=== PATIENT | male | born 1995 | race Caucasian/White ===

== ENCOUNTER 2017-07-05 23:37 | Observation (INO) | payer OTHER ==
[~2017-07-05] VITALS: Ht 188 cm; Wt 141.9 kg
[2017-07-06] VITALS (8 sets, daily range): BP systolic 106–150; BP diastolic 53–83
[2017-07-06 00:07] LABS: HEMATOCRIT 45.6 % (38.0-50.0); MCH 28.1 PG (29.0-34.0); MCHC 33.1 G/DL (30.0-36.0); MCV 84.8 FL (86-99); MEAN PLAT.VOLUME 10.1 uM^3 (9.0-12.4); PLATELET COUNT 232 K/uL (156-360); RBC DIS.WIDTH-CV 12.6 % (11.8-14.6); RBC DIS.WIDTH-SD 38.5 % (39-53); RED BLOOD COUNT 5.38 M/uL (4.00-5.50); WHITE BLOOD COUNT 14.6 K/uL (4.1-10.2)
[2017-07-06 00:20] LABS: CHLORIDE 103 mEq/L (99-109); POTASSIUM 4.4 mEq/L (3.7-5.4); SODIUM 139 mEq/L (136-147)
[2017-07-06 00:21] LABS: GLUCOSE 99 mg/dL (70-99)
[2017-07-06 00:23] LABS: ANION GAP 10 MEQ/L (2-14)
[2017-07-06 00:25] LABS: GFR ESTIMATE (CALCULATED) > 59 mL/min/
[2017-07-06 00:26] LABS: UREA NITROGEN (BUN) 13 mg/dL (9-23)
[2017-07-06 01:34] LABS: INFLUENZA A VIRAL ANTIGEN NEGATIVE; INFLUENZA B VIRAL ANTIGEN NEGATIVE
[2017-07-06 01:44] LABS: TOTAL BILIRUBIN 0.4 mg/dL (0.0-1.0)
[2017-07-06 01:45] LABS: ALKALINE PHOSPHATASE 64 IU/L (3-129)
[2017-07-06 01:48] LABS: DIRECT BILIRUBIN 0.2 mg/dL (0.0-0.3)
[2017-07-06 02:20] LABS: INTERNAL CONTROL VALID? YES; MONOSPOT (MONONUCLEOSIS SEROL) NEGATIVE
[2017-07-06 02:49] LABS: ADD MIUA? NO; BILIRUBIN NEGATIVE; BLOOD NEGATIVE; COLOR YELLOW ((YELLOW)); GLUCOSE (STRIP) NEGATIVE; KETONES NEGATIVE; LEUKOCYTES NEGATIVE; NITRITE NEGATIVE; PROTEIN (STRIP) NEGATIVE; SPECIFIC GRAVITY 1.014 (1.000-1.030); UCUL ADDED? NO; UROBILINOGEN 0.2 MG/DL (0.2-1.0)
[2017-07-06 05:15] LABS: TROP-I INTERPRETATION NEGATIVE; TROPONIN-I < 0.01 ng/mL (0.0-0.30)
[2017-07-06 05:49] LABS: EOSINOPHIL (%) 0.1 % (0-5); HEMATOCRIT 42.5 % (38.0-50.0); IMMATURE GRANULOCYTE (%) 0.5 % (0.0-0.7); IMMATURE GRANULOCYTE COUNT 0.1 K/uL; INSTRUMENT ABS NEUTROPHIL CT 14.6 K/uL; LYMPHOCYTE COUNT 0.7 K/uL (1.0-2.8); MCHC 32.7 G/DL (30.0-36.0); MCV 85.5 FL (86-99); MEAN PLAT.VOLUME 10.2 uM^3 (9.0-12.4); MONOCYTE (%) 7.6 % (3-12); MONOCYTE COUNT 1.3 K/uL (0-0.8); NEUTROPHIL (%) 87.4 % (45-76); NEUTROPHIL COUNT 14.6 K/uL (1.8-6.4); PLATELET COUNT 231 K/uL (156-360); RBC DIS.WIDTH-CV 12.7 % (11.8-14.6); RBC DIS.WIDTH-SD 39.6 % (39-53); RED BLOOD COUNT 4.97 M/uL (4.00-5.50); WHITE BLOOD COUNT 16.7 K/uL (4.1-10.2)
[2017-07-06] MEDS ORDERED: ONCE DAILY1 EACH PO (19:03)
[2017-07-07 08:02] VITALS: BP 150/67
[2017-07-07 08:46] LABS: HEMATOCRIT 44.4 % (38.0-50.0); MCH 27.7 PG (29.0-34.0); MCV 86.5 FL (86-99); MEAN PLAT.VOLUME 9.8 uM^3 (9.0-12.4); PLATELET COUNT 181 K/uL (156-360); RBC DIS.WIDTH-CV 12.9 % (11.8-14.6); RBC DIS.WIDTH-SD 40.8 % (39-53); RED BLOOD COUNT 5.13 M/uL (4.00-5.50); WHITE BLOOD COUNT 8.2 K/uL (4.1-10.2)
[2017-07-07 11:49] VITALS: BP 137/70
== END 2017-07-07 13:24 | disposition home or self-care (01) ==
LOC: EME 23:37 → EXP 23:37 → EDOF 07-06 05:01 → ENRESERV 07-06 05:03 → 5WEST 07-06 05:39
PROVIDERS: Hospitalist; Physician Assistant; Physician Assistant Medical
DX: R50.9 Fever, unspecified (principal); R00.0 Tachycardia, unspecified; J02.9 Acute pharyngitis, unspecified; R11.2 Nausea with vomiting, unspecified; E66.01 Morbid (severe) obesity due to excess calories; Z68.39 Body mass index [BMI] 39.0-39.9, adult; E86.0 Dehydration
CPT/HCPCS: 71020; 80048; 80076; 81003; 83605; 84443; 84484; 85025; 85027; 86308; 87040; 87420; 87502; 87651 90; 93005; 99281; 99285; G0378; J1885; J7030; J7120